=== PATIENT | male | born 1980 | race Caucasian/White ===

== ENCOUNTER 2022-07-10 17:33 | Inpatient (IN) | payer MEDICAID, OTHER ==
[~2022-07-10] VITALS: Ht 180.3 cm; Wt 79.5 kg
[2022-07-10 22:03] LABS: BASOPHILS % (AUTO) 0.3 % (0.0-2.0); EOSINOPHILS % (AUTO) 0.6 % (1.0-6.0); HEMATOCRIT 52.6 % (41-53); HEMOGLOBIN 17.9 g/dL (13.5-17.5); LYMPHOCYTES # (AUTO) 2.1 K/uL (1.0-4.8); LYMPHOCYTES % (AUTO) 25.2 % (22.0-44.0); MEAN CORPUSCULAR HEMOGLOBIN 30.2 pg (26.0-34.0); MEAN CORPUSCULAR HGB CONC 34.1 G/dL (31.0-37.0); MEAN CORPUSCULAR VOLUME 89 fL (80-100); MONOCYTES # (AUTO) 0.6 K/uL (0.1-1.0); MONOCYTES % (AUTO) 7.4 % (2.0-9.0); NEUTROPHILS # (AUTO) 5.5 K/uL (1.8-7.7); NEUTROPHILS % (AUTO) 66.5 % (40.0-70.0); PLATELET COUNT (AUTO) 191 K/uL (150-450); RED BLOOD CELL COUNT(AUTO) 5.93 MIL/uL (4.50-5.90); RED CELL DISTRIBUTION WIDTH 13.7 % (11.5-14.5)
[2022-07-10 22:12] LABS: ANION GAP 9 mmol/L (8-16); CALCIUM, TOTAL 9.3 mg/dL (8.8-10.5); CARBON DIOXIDE 31 mmol/L (22-29); CHLORIDE 97 mmol/L (98-107); CREATININE 1.03 mg/dL (0.60-1.30); GLOMERULAR FILTR. RATE CALC > 60 mL/min (>60); GLUCOSE,RANDOM 130 mg/dL (70-110); SODIUM SERUM 137 mmol/L (136-145); UREA NITROGEN, BLOOD 10 mg/dL (7-18)
[2022-07-10 22:18] LABS: ALANINE AMINOTRANSFERASE 27 U/L (12-78); ALKALINE PHOSPHATASE 74 U/L (46-116); ASPARTATE AMINOTRANSFERASE 14 U/L (15-37); BILIRUBIN,TOTAL 0.7 mg/dL (0.1-1.0)
[2022-07-10 23:32] LABS: AMPHET/METH SCREEN,URINE NEGATIVE (NEGATIVE); BARBITURATE SCREEN, URINE NEGATIVE (NEGATIVE); BENZODIAZEPINES SCREEN,URINE NEGATIVE (NEGATIVE); CANNABINOID SCREEN,URINE POSITIVE (NEGATIVE); COCAINE SCREEN,URINE NEGATIVE (NEGATIVE); METHADONE SCREEN, URINE NEGATIVE (NEGATIVE); OPIATE SCREEN,URINE NEGATIVE (NEGATIVE)
[2022-07-10 23:33] LABS: PHENCYCLIDINE SCREEN,URINE NEGATIVE (NEGATIVE)
[2022-07-11] MEDS ORDERED: HALOPERIDOL 5 MG TABLET PO ONE
[2022-07-11] MEDS ORDERED: LORazepam 1 MG TABLET PO ONE
[2022-07-11] MEDS ORDERED: QUEtiapine FUMARATE 100 MG TABLET PO PRN (08:15)
[2022-07-11 08:26] LABS: COVID AG,FIA SOURCE NASAL SWAB
[2022-07-11 12:36] VITALS: BP 112/87
[2022-07-11] MEDS ORDERED: PNEUMOCOCCAL VACCINE POLYVALENT 0.5 ML VIAL [PPSV23] IM. ONE (13:00)
[2022-07-11] MEDS ORDERED: LOPERAMIDE HCL 2 MG CAPSULE PO PRN (15:15)
[2022-07-11] MEDS ORDERED: HydrOXYzine PAMOATE 50 MG CAPSULE PO PRN (15:15)
[2022-07-11] MEDS ORDERED: LURASIDONE HCL 20 MG TABLET PO PRN (15:15)
[2022-07-11] MEDS ORDERED: MAG HYDROX/AL HYDROX/SIMETH ES 30 ML SUSPENSION UDCUP PO PRN (15:15)
[2022-07-11] MEDS ORDERED: GuaiFENesin/D-METHORPHAN [SUGAR-FREE] 200-20MG/10 ML SYRUP UDCUP PO PRN (15:15)
[2022-07-11] MEDS ORDERED: PROMETHAZINE HCL 25 MG TABLET PO PRN (15:15)
[2022-07-11] MEDS ORDERED: TUBERCULIN, PURIFIED PROTEIN DERIVATIVE 5 TU/0.1 ML SYRINGE ID ONE (15:15)
[2022-07-11] MEDS ORDERED: MAGNESIUM HYDROXIDE SUSPENSION 30 ML UDCUP PO PRN (15:15)
[2022-07-11] MEDS ORDERED: ACETAMINOPHEN 325 MG TABLET PO PRN ×2 (15:15→21:00)
[2022-07-11] MEDS: LURASIDONE HCL 40 MG TABLET PO SCH (17:00)
[2022-07-11] MEDS: THIAMINE 100 MG TABLET PO SCH (17:03)
[2022-07-11] MEDS: MELATONIN 5 MG TABLET PO SCH (20:30)
[2022-07-11 20:42] VITALS: BP 119/87
[2022-07-11] MEDS: ZOLPIDEM TARTRATE 10 MG TABLET PO PRN ×2 (23:17→23:21)
[2022-07-12 00:03] VITALS: BP 124/90
[2022-07-12] MEDS: LORazepam 2 MG TABLET PO PRN ×2 (00:07→22:54)
[2022-07-12 08:15] VITALS: BP 137/75
[2022-07-12] MEDS: FOLIC ACID 1 MG TABLET PO SCH (08:56)
[2022-07-12] MEDS: OMEGA-3/DHA/EPA/FISH OIL 1,000 MG CAPSULE PO SCH (08:56)
[2022-07-12] MEDS: THIAMINE 100 MG TABLET PO SCH ×2 (08:56→16:05)
[2022-07-12] MEDS: MULTIVITAMINS WITH MINERALS, THERAPEUTIC TABLET PO SCH (08:56)
[2022-07-12] MEDS: NALTREXONE HCL 50 MG TABLET PO SCH (08:57)
[2022-07-12 08:58] LABS: HEMOGLOBIN A1C 5.6 % (3.8-5.6)
[2022-07-12 09:28] LABS: CHOL/HDL RATIO 2.9 (4.2-7.3); FREE T4 (FREE THYROXINE) 1.05 ng/dL (0.76-1.46); THYROID STIMULATING HORMONE 1.43 uIU/mL (0.36-3.74)
[2022-07-12] MEDS: LURASIDONE HCL 40 MG TABLET PO SCH ×2 (16:05→16:10)
[2022-07-12] MEDS: MELATONIN 5 MG TABLET PO SCH (20:17)
[2022-07-12 20:30] VITALS: BP 137/84
[2022-07-13 08:19] VITALS: BP 134/82
[2022-07-13] MEDS: OMEGA-3/DHA/EPA/FISH OIL 1,000 MG CAPSULE PO SCH (08:25)
[2022-07-13] MEDS: NALTREXONE HCL 50 MG TABLET PO SCH (08:26)
[2022-07-13] MEDS: FOLIC ACID 1 MG TABLET PO SCH (08:26)
[2022-07-13] MEDS: MULTIVITAMINS WITH MINERALS, THERAPEUTIC TABLET PO SCH (08:26)
[2022-07-13] MEDS: THIAMINE 100 MG TABLET PO SCH ×2 (08:26→16:13)
[2022-07-13] MEDS: LURASIDONE HCL 40 MG TABLET PO SCH (17:00)
[2022-07-13 20:22] VITALS: BP 136/84
[2022-07-13] MEDS: MELATONIN 5 MG TABLET PO SCH (20:32)
[2022-07-13] MEDS: LORazepam 2 MG TABLET PO PRN (21:53)
[2022-07-13] MEDS ORDERED: TEMAZEPAM 15 MG CAPSULE PO PRN (22:00)
[2022-07-14] MEDS: NALTREXONE HCL 50 MG TABLET PO SCH (08:09)
[2022-07-14] MEDS: FOLIC ACID 1 MG TABLET PO SCH (08:09)
[2022-07-14] MEDS: OMEGA-3/DHA/EPA/FISH OIL 1,000 MG CAPSULE PO SCH (08:09)
[2022-07-14] MEDS: MULTIVITAMINS WITH MINERALS, THERAPEUTIC TABLET PO SCH (08:09)
[2022-07-14] MEDS: THIAMINE 100 MG TABLET PO SCH ×2 (08:09→16:19)
[2022-07-14 08:11] VITALS: BP 121/79
[2022-07-14] MEDS ORDERED: NALT50TA PO (13:48)
[2022-07-14] MEDS ORDERED: MELA5TAB40 PO (13:48)
[2022-07-14] MEDS ORDERED: OMEG-135 PO (13:48)
[2022-07-14] MEDS ORDERED: LURA40TA2 PO (13:48)
[2022-07-14] MEDS: LURASIDONE HCL 40 MG TABLET PO SCH (16:18)
== END 2022-07-14 17:00 | disposition home or self-care (01) | DRG 750 ==
LOC: EMS 17:33 → EDBD 17:33 → B2S 07-11 10:37
PROVIDERS: ADMIT Psychiatry & Neurology Psychiatry; ATTEND Psychiatry & Neurology Psychiatry
DX: F25.1 Schizoaffective disorder, depressive type (principal); F12.10 Cannabis abuse, uncomplicated; Z20.822 Contact with and (suspected) exposure to COVID-19; F17.210 Nicotine dependence, cigarettes, uncomplicated; F60.0 Paranoid personality disorder; G47.00 Insomnia, unspecified; I10 Essential (primary) hypertension; Z55.9 Problems related to education and literacy, unspecified; Z56.0 Unemployment, unspecified; Z59.9 Problem related to housing and economic circumstances, unspecified; Z63.9 Problem related to primary support group, unspecified; Z65.3 Problems related to other legal circumstances; Z88.5 Allergy status to narcotic agent
CPT/HCPCS: 80053; 80061; 83036; 84439; 84443; 85025; 86592; 99285; G0480; Q9967

== ENCOUNTER 2022-07-24 17:06 | Inpatient (IN) | payer MEDICAID, OTHER ==
[~2022-07-24] VITALS: Ht 180.3 cm; Wt 81.2 kg
[~2022-07-24 17:06] MED LIST: LURA40TA2 PO; MELA5TAB40 PO; NALT50TA PO; OMEG-135 PO
[2022-07-24 18:10] LABS: BASOPHILS % (AUTO) 0.4 % (0.0-2.0); HEMATOCRIT 50.3 % (41-53); HEMOGLOBIN 16.9 g/dL (13.5-17.5); LYMPHOCYTES # (AUTO) 2.2 K/uL (1.0-4.8); MEAN CORPUSCULAR HGB CONC 33.7 G/dL (31.0-37.0); MEAN CORPUSCULAR VOLUME 89 fL (80-100); MONOCYTES # (AUTO) 0.6 K/uL (0.1-1.0); MONOCYTES % (AUTO) 6.2 % (2.0-9.0); NEUTROPHILS # (AUTO) 6.2 K/uL (1.8-7.7); NEUTROPHILS % (AUTO) 68.4 % (40.0-70.0); PLATELET COUNT (AUTO) 221 K/uL (150-450); RED BLOOD CELL COUNT(AUTO) 5.64 MIL/uL (4.50-5.90); RED CELL DISTRIBUTION WIDTH 13.6 % (11.5-14.5)
[2022-07-24 18:20] LABS: COVID AG,FIA SOURCE NASAL SWAB
[2022-07-24 18:24] LABS: ANION GAP 3 mmol/L (8-16); CALCIUM, TOTAL 8.9 mg/dL (8.8-10.5); CARBON DIOXIDE 28 mmol/L (22-29); CHLORIDE 99 mmol/L (98-107); CREATININE 1.01 mg/dL (0.60-1.30); GLUCOSE,RANDOM 143 mg/dL (70-110); POTASSIUM 3.2 mmol/L (3.5-5.1); SODIUM SERUM 130 mmol/L (136-145); UREA NITROGEN, BLOOD 17 mg/dL (7-18)
[2022-07-24 18:28] LABS: GLOMERULAR FILTR. RATE CALC > 60 mL/min (>60)
[2022-07-24 18:30] LABS: ALANINE AMINOTRANSFERASE 27 U/L (12-78); ALBUMIN 3.6 g/dL (3.4-5.0); ALKALINE PHOSPHATASE 68 U/L (46-116); ASPARTATE AMINOTRANSFERASE 15 U/L (15-37); BILIRUBIN,TOTAL 0.6 mg/dL (0.1-1.0); TOTAL PROTEIN, SERUM 7.4 g/dL (6.4-8.2)
[2022-07-24] MEDS ORDERED: QUEtiapine FUMARATE 100 MG TABLET PO PRN (21:15)
[2022-07-24] MEDS: LORazepam 2 MG TABLET PO PRN (21:33)
[2022-07-25 03:08] VITALS: BP 100/70
[2022-07-25 03:11] VITALS: BP 100/70
[2022-07-25 07:09] LABS: HEMOGLOBIN A1C 5.5 % (3.8-5.6)
[2022-07-25 07:19] LABS: ALANINE AMINOTRANSFERASE 23 U/L (12-78); ALBUMIN 3.1 g/dL (3.4-5.0); ALKALINE PHOSPHATASE 68 U/L (46-116); ANION GAP 2 mmol/L (8-16); ASPARTATE AMINOTRANSFERASE 12 U/L (15-37); BILIRUBIN,TOTAL 0.3 mg/dL (0.1-1.0); CALCIUM, TOTAL 8.6 mg/dL (8.8-10.5); CARBON DIOXIDE 30 mmol/L (22-29); CHLORIDE 104 mmol/L (98-107); CHOLESTEROL 131 mg/dL (131-200); CREATININE 0.92 mg/dL (0.60-1.30); FREE T4 (FREE THYROXINE) 0.98 ng/dL (0.76-1.46); GLUCOSE,RANDOM 135 mg/dL (70-110); HDL CHOLESTEROL 44 mg/dL (40-60); LDL CHOL (CALC.) 66 mg/dL (0-130); POTASSIUM 3.4 mmol/L (3.5-5.1); SODIUM SERUM 136 mmol/L (136-145); THYROID STIMULATING HORMONE 1.39 uIU/mL (0.36-3.74); TOTAL PROTEIN, SERUM 6.4 g/dL (6.4-8.2); TRIGLYCERIDES 107 mg/dL (15-150); UREA NITROGEN, BLOOD 18 mg/dL (7-18)
[2022-07-25 07:21] LABS: GLOMERULAR FILTR. RATE CALC > 60 mL/min (>60)
[2022-07-25 09:16] VITALS: BP 114/71
[2022-07-25] MEDS: LORazepam 2 MG TABLET PO PRN (12:25)
[2022-07-25] MEDS ORDERED: LORazepam 1 MG TABLET PO PRN (19:00)
[2022-07-25] MEDS: ChlorproMAZINE HCL 100 MG TABLET PO SCH (20:01)
[2022-07-25] MEDS: TraZODone HCL 100 MG TABLET PO SCH (20:01)
[2022-07-25] MEDS: DiphenhydrAMINE HCL 25 MG CAPSULE PO SCH (20:01)
[2022-07-25] MEDS: OLANZapine 5 MG TABLET PO SCH (20:01)
[2022-07-25 20:10] VITALS: BP 108/61
[2022-07-26 07:09] LABS: BASOPHILS % (AUTO) 3.3 % (0.0-2.0); EOSINOPHILS % (AUTO) 2.2 % (1.0-6.0); HEMATOCRIT 45.1 % (41-53); HEMOGLOBIN 15.3 g/dL (13.5-17.5); LYMPHOCYTES # (AUTO) 1.5 K/uL (1.0-4.8); MEAN CORPUSCULAR HEMOGLOBIN 30.5 pg (26.0-34.0); MEAN CORPUSCULAR HGB CONC 33.9 G/dL (31.0-37.0); MEAN CORPUSCULAR VOLUME 90 fL (80-100); MONOCYTES # (AUTO) 0.4 K/uL (0.1-1.0); NEUTROPHILS # (AUTO) 4.1 K/uL (1.8-7.7); NEUTROPHILS % (AUTO) 64.5 % (40.0-70.0); PLATELET COUNT (AUTO) 173 K/uL (150-450); RED BLOOD CELL COUNT(AUTO) 5.01 MIL/uL (4.50-5.90); RED CELL DISTRIBUTION WIDTH 13.5 % (11.5-14.5)
[2022-07-26 07:22] LABS: HEMOGLOBIN A1C 5.6 % (3.8-5.6)
[2022-07-26 07:33] LABS: ALANINE AMINOTRANSFERASE 19 U/L (12-78); ANION GAP 5 mmol/L (8-16); CALCIUM, TOTAL 8.8 mg/dL (8.8-10.5); CARBON DIOXIDE 30 mmol/L (22-29); CHLORIDE 106 mmol/L (98-107); CHOL/HDL RATIO 3.4 (4.2-7.3); CHOLESTEROL 135 mg/dL (131-200); CREATININE 0.85 mg/dL (0.60-1.30); GLUCOSE,RANDOM 105 mg/dL (70-110); HDL CHOLESTEROL 40 mg/dL (40-60); LDL CHOL (CALC.) 71 mg/dL (0-130); POTASSIUM 3.3 mmol/L (3.5-5.1); SODIUM SERUM 141 mmol/L (136-145); TRIGLYCERIDES 119 mg/dL (15-150); UREA NITROGEN, BLOOD 16 mg/dL (7-18)
[2022-07-26 07:38] LABS: GLOMERULAR FILTR. RATE CALC > 60 mL/min (>60)
[2022-07-26 08:04] LABS: FREE T4 (FREE THYROXINE) 0.88 ng/dL (0.76-1.46); THYROID STIMULATING HORMONE 1.26 uIU/mL (0.36-3.74)
[2022-07-26 08:12] LABS: APPEARANCE,URINE HAZY (CLEAR); BILIRUBIN,URINE NEGATIVE (NEGATIVE); GLUCOSE, URINE (UA) NEGATIVE (NEGATIVE); KETONES,URINE NEGATIVE (NEGATIVE); LEUKOCYTE ESTERASE ,URINE NEGATIVE (NEGATIVE); NITRATE,URINE NEGATIVE (NEGATIVE); OCCULT BLOOD,URINE SMALL (NEGATIVE); PH,URINE 6.5 (5.0-8.0); PROTEIN,URINE TRACE mg/dL (NEGATIVE); SPECIFIC GRAVITIY, URINE 1.029 (1.003-1.030); UROBILINOGEN,URINE <=1.0 mg/dL (<=1.0)
[2022-07-26] MEDS: ChlorproMAZINE HCL 100 MG TABLET PO SCH ×4 (08:14→20:42)
[2022-07-26 08:21] LABS: AMPHET/METH SCREEN,URINE NEGATIVE (NEGATIVE); BARBITURATE SCREEN, URINE NEGATIVE (NEGATIVE); BENZODIAZEPINES SCREEN,URINE NEGATIVE (NEGATIVE); CANNABINOID SCREEN,URINE POSITIVE (NEGATIVE); COCAINE SCREEN,URINE NEGATIVE (NEGATIVE); METHADONE SCREEN, URINE NEGATIVE (NEGATIVE); OPIATE SCREEN,URINE NEGATIVE (NEGATIVE)
[2022-07-26 08:22] LABS: PHENCYCLIDINE SCREEN,URINE NEGATIVE (NEGATIVE)
[2022-07-26 08:23] VITALS: BP 115/65
[2022-07-26 08:27] LABS: AMORPHOUS SEDIMENT,UR Moderate /LPF (None Seen); BACTERIA,URINE None Seen /HPF (None Seen); HYALINE CASTS, URINE 0-2 /LPF (None Seen); SQUAMOUS EPITHELIAL CELL,UR Few /LPF (None Seen); WBC,URINE 0-2 /HPF (0-5)
[2022-07-26] MEDS ORDERED: POTASSIUM CHLORIDE 20 MEQ ER TABLET PO ONE (11:45)
[2022-07-26 20:14] VITALS: BP 105/68
[2022-07-26] MEDS: TraZODone HCL 100 MG TABLET PO SCH (20:42)
[2022-07-26] MEDS: OLANZapine 5 MG TABLET PO SCH (20:42)
[2022-07-26] MEDS: DiphenhydrAMINE HCL 25 MG CAPSULE PO SCH (20:42)
[2022-07-27 07:57] LABS: ANION GAP 0 mmol/L (8-16); CALCIUM, TOTAL 8.5 mg/dL (8.8-10.5); CARBON DIOXIDE 31 mmol/L (22-29); CHLORIDE 103 mmol/L (98-107); CREATININE 1.02 mg/dL (0.60-1.30); GLUCOSE,RANDOM 109 mg/dL (70-110); POTASSIUM 3.7 mmol/L (3.5-5.1); SODIUM SERUM 134 mmol/L (136-145); UREA NITROGEN, BLOOD 15 mg/dL (7-18)
[2022-07-27 07:58] LABS: GLOMERULAR FILTR. RATE CALC > 60 mL/min (>60)
[2022-07-27 08:31] VITALS: BP 140/86
[2022-07-27] MEDS: ChlorproMAZINE HCL 100 MG TABLET PO SCH ×4 (08:48→20:36)
[2022-07-27 20:13] VITALS: BP 120/64
[2022-07-27] MEDS: DiphenhydrAMINE HCL 25 MG CAPSULE PO SCH (20:36)
[2022-07-27] MEDS: TraZODone HCL 100 MG TABLET PO SCH (20:36)
[2022-07-27] MEDS: OLANZapine 5 MG TABLET PO SCH (20:36)
[2022-07-27] MEDS ORDERED: ChlorproMAZINE HCL 50 MG TABLET PO PRN (21:15)
[2022-07-28 08:16] VITALS: BP 120/76
[2022-07-28] MEDS: TraZODone HCL 100 MG TABLET PO SCH (20:05)
[2022-07-28] MEDS: OLANZapine 5 MG TABLET PO SCH (20:06)
[2022-07-28] MEDS: DiphenhydrAMINE HCL 25 MG CAPSULE PO SCH (20:06)
[2022-07-28 20:41] VITALS: BP 116/73
[2022-07-29 08:23] VITALS: BP 132/97
[2022-07-29 20:12] VITALS: BP 127/78
[2022-07-29] MEDS: OLANZapine 5 MG TABLET PO SCH (20:14)
[2022-07-29] MEDS: TraZODone HCL 100 MG TABLET PO SCH (20:14)
[2022-07-29] MEDS: DiphenhydrAMINE HCL 25 MG CAPSULE PO SCH (20:14)
[2022-07-30 08:58] VITALS: BP 126/83
[2022-07-30 20:11] VITALS: BP 125/85
[2022-07-30] MEDS: TEMAZEPAM 15 MG CAPSULE PO PRN (20:45)
[2022-07-30] MEDS: TraZODone HCL 150 MG TABLET PO SCH (20:45)
[2022-07-30] MEDS: OLANZapine 5 MG TABLET PO SCH (20:45)
[2022-07-30] MEDS: DiphenhydrAMINE HCL 25 MG CAPSULE PO SCH (20:45)
[2022-07-31 13:47] VITALS: BP 123/73
[2022-07-31 20:00] VITALS: BP 127/81
[2022-07-31] MEDS: DiphenhydrAMINE HCL 25 MG CAPSULE PO SCH (20:33)
[2022-07-31] MEDS: TraZODone HCL 150 MG TABLET PO SCH (20:33)
[2022-07-31] MEDS: OLANZapine 5 MG TABLET PO SCH (20:33)
[2022-07-31] MEDS: TEMAZEPAM 15 MG CAPSULE PO PRN (20:33)
[2022-08-01] MEDS ORDERED: OLANZapine 5 MG RAPDIS TABLET PO PRN (10:30)
[2022-08-01] MEDS ORDERED: TRAZ-283 PO (10:31)
[2022-08-01] MEDS ORDERED: OLAN5TAB52 PO (10:31)
[2022-08-01] MEDS ORDERED: MELA5TAB40 PO (10:31)
[2022-08-01] MEDS ORDERED: NALT50TA PO (10:31)
[2022-08-01 11:31] LABS: GLUCOMETER DEV NAME(LOC) POC.BV
[2022-08-01 13:52] VITALS: BP_SYST 100; BP_SYST 136; BP_DIAS 73; BP_DIAS 83
[2022-08-01] MEDS ORDERED: MELATONIN 5 MG TABLET PO SCH (21:00)
[2022-08-02] MEDS ORDERED: NALTREXONE HCL 50 MG TABLET PO SCH (09:00)
== END 2022-08-01 19:18 | disposition home or self-care (01) | DRG 750 ==
LOC: EMS 17:06 → B3A 07-25 01:16
PROVIDERS: ADMIT Psychiatry & Neurology Psychiatry; ATTEND Psychiatry & Neurology Psychiatry
DX: F25.1 Schizoaffective disorder, depressive type (principal); R45.850 Homicidal ideations; R45.851 Suicidal ideations; F41.9 Anxiety disorder, unspecified; G47.00 Insomnia, unspecified; E87.6 Hypokalemia; I10 Essential (primary) hypertension; R31.9 Hematuria, unspecified; Z20.822 Contact with and (suspected) exposure to COVID-19; Z55.9 Problems related to education and literacy, unspecified; Z59.9 Problem related to housing and economic circumstances, unspecified; Z63.9 Problem related to primary support group, unspecified; Z65.3 Problems related to other legal circumstances; Z87.891 Personal history of nicotine dependence; Z79.899 Other long term (current) drug therapy; Z88.8 Allergy status to other drugs, medicaments and biological substances
CPT/HCPCS: 70450; 80048; 80053; 80061; 80307; 81001; 82607; 83036; 84439; 84443; 84460; 85025; 86592; 87081; 99285; G0480

== ENCOUNTER 2023-03-15 10:34 | Inpatient (IN) | payer MEDICAID, OTHER ==
[~2023-03-15] VITALS: Ht 185.4 cm; Wt 80.1 kg
[~2023-03-15 10:34] MED LIST changes: -LURA40TA2 PO; +OLAN5TAB52 PO; +TRAZ-283 PO
[2023-03-15 12:19] LABS: BASOPHILS % (AUTO) 0.5 % (0.0-2.0); EOSINOPHILS % (AUTO) 0.1 % (1.0-6.0); HEMATOCRIT 52.8 % (41-53); HEMOGLOBIN 17.6 g/dL (13.5-17.5); LYMPHOCYTES # (AUTO) 1.3 K/uL (1.0-4.8); LYMPHOCYTES % (AUTO) 14.9 % (22.0-44.0); MEAN CORPUSCULAR HEMOGLOBIN 30.7 pg (26.0-34.0); MEAN CORPUSCULAR HGB CONC 33.3 G/dL (31.0-37.0); MEAN CORPUSCULAR VOLUME 92 fL (80-100); MONOCYTES # (AUTO) 0.5 K/uL (0.1-1.0); MONOCYTES % (AUTO) 5.8 % (2.0-9.0); NEUTROPHILS # (AUTO) 6.7 K/uL (1.8-7.7); NEUTROPHILS % (AUTO) 78.7 % (40.0-70.0); PLATELET COUNT (AUTO) 211 K/uL (150-450); RED BLOOD CELL COUNT(AUTO) 5.72 MIL/uL (4.50-5.90)
[2023-03-15 12:30] LABS: ANION GAP 7 mmol/L (8-16); CALCIUM, TOTAL 9.3 mg/dL (8.8-10.5); CARBON DIOXIDE 29 mmol/L (22-29); CHLORIDE 99 mmol/L (98-107); GLOMERULAR FILTR. RATE CALC > 60 mL/min (>60); GLUCOSE,RANDOM 96 mg/dL (70-110); POTASSIUM 4.1 mmol/L (3.5-5.1); SODIUM SERUM 135 mmol/L (136-145); UREA NITROGEN, BLOOD 14 mg/dL (7-18)
[2023-03-15 12:32] LABS: ALANINE AMINOTRANSFERASE 27 U/L (12-78); ALBUMIN 4.4 g/dL (3.4-5.0); ALKALINE PHOSPHATASE 67 U/L (46-116); ASPARTATE AMINOTRANSFERASE 20 U/L (15-37); BILIRUBIN,TOTAL 1.1 mg/dL (0.1-1.0); TOTAL PROTEIN, SERUM 8.6 g/dL (6.4-8.2)
[2023-03-15] MEDS ORDERED: LORazepam 2 MG TABLET PO ONE (14:00)
[2023-03-15] MEDS ORDERED: DiphenhydrAMINE HCL 50 MG CAPSULE PO ONE (14:00)
[2023-03-15] MEDS ORDERED: HALOPERIDOL 5 MG TABLET PO ONE (14:00)
[2023-03-15 14:07] LABS: COVID AG,FIA SOURCE NASOPHARYNGEAL
[2023-03-15 14:14] LABS: APPEARANCE,URINE CLEAR (CLEAR); BILIRUBIN,URINE NEGATIVE (NEGATIVE); GLUCOSE, URINE (UA) NEGATIVE (NEGATIVE); KETONES,URINE 40-60 mg/dL (NEGATIVE); LEUKOCYTE ESTERASE ,URINE NEGATIVE (NEGATIVE); NITRATE,URINE NEGATIVE (NEGATIVE); OCCULT BLOOD,URINE MODERATE (NEGATIVE); PH,URINE 5.5 (5.0-8.0); PROTEIN,URINE NEGATIVE (NEGATIVE); SPECIFIC GRAVITIY, URINE 1.011 (1.003-1.030); UROBILINOGEN,URINE <=1.0 mg/dL (<=1.0)
[2023-03-15] MEDS ORDERED: LORazepam 2 MG TABLET PO PRN (14:15)
[2023-03-15] MEDS ORDERED: HALOPERIDOL 5 MG TABLET PO PRN (14:15)
[2023-03-15] MEDS ORDERED: ZOLPIDEM TARTRATE 10 MG TABLET PO PRN (14:15)
[2023-03-15 14:20] LABS: AMPHET/METH SCREEN,URINE NEGATIVE (NEGATIVE); BARBITURATE SCREEN, URINE NEGATIVE (NEGATIVE); BENZODIAZEPINES SCREEN,URINE NEGATIVE (NEGATIVE); CANNABINOID SCREEN,URINE POSITIVE (NEGATIVE); COCAINE SCREEN,URINE NEGATIVE (NEGATIVE); METHADONE SCREEN, URINE NEGATIVE (NEGATIVE); OPIATE SCREEN,URINE NEGATIVE (NEGATIVE); PHENCYCLIDINE SCREEN,URINE NEGATIVE (NEGATIVE)
[2023-03-15 14:33] LABS: BACTERIA,URINE None Seen /HPF (None Seen); SQUAMOUS EPITHELIAL CELL,UR Rare /LPF (None Seen); WBC,URINE None Seen /HPF (0-5)
[2023-03-15 22:10] VITALS: BP 119/74
[2023-03-16] MEDS ORDERED: ONDANSETRON HCL 4 MG TABLET PO PRN (05:15)
[2023-03-16] MEDS ORDERED: CloNIDine HCL 0.1 MG TABLET PO PRN (05:15)
[2023-03-16] MEDS ORDERED: ACETAMINOPHEN 325 MG TABLET PO PRN (05:15)
[2023-03-16] MEDS ORDERED: MAG HYDROX/AL HYDROX/SIMETH ES 30 ML SUSPENSION UDCUP PO PRN (05:15)
[2023-03-16] MEDS ORDERED: LOPERAMIDE HCL 2 MG CAPSULE PO PRN (05:15)
[2023-03-16] MEDS ORDERED: IBUPROFEN 600 MG TABLET PO PRN (05:15)
[2023-03-16] MEDS ORDERED: PETROLATUM,WHITE 28 GM JELLY TP PRN (05:15)
[2023-03-16] MEDS ORDERED: OMEPRAZOLE 20 MG CAPSULE PO PRN (05:15)
[2023-03-16] MEDS ORDERED: ALBUTEROL SULFATE HFA 90 MCG/PUFF 8 GM INHALER IH PRN (05:15)
[2023-03-16] MEDS ORDERED: BACITRACIN 28 GM OINTMENT TP PRN (05:15)
[2023-03-16] MEDS ORDERED: DOCUSATE SODIUM 100 MG CAPSULE PO PRN (05:15)
[2023-03-16] MEDS ORDERED: MAGNESIUM HYDROXIDE SUSPENSION 30 ML UDCUP PO PRN (05:15)
[2023-03-16] MEDS: OMEGA-3/DHA/EPA/FISH OIL 1,000 MG CAPSULE PO SCH (09:58)
[2023-03-16 10:37] VITALS: BP 144/84
[2023-03-16 16:00] VITALS: BP 162/95
[2023-03-17 08:00] VITALS: BP 134/82
[2023-03-17] MEDS: OMEGA-3/DHA/EPA/FISH OIL 1,000 MG CAPSULE PO SCH (08:19)
[2023-03-17 16:24] VITALS: BP 140/79
[2023-03-17 20:30] VITALS: BP 128/72
[2023-03-18 08:57] VITALS: BP 139/82
[2023-03-18] MEDS: OMEGA-3/DHA/EPA/FISH OIL 1,000 MG CAPSULE PO SCH (10:13)
[2023-03-18] MEDS: RisperiDONE 2 MG TABLET PO SCH ×2 (10:13→17:40)
[2023-03-18] MEDS: HydrOXYzine PAMOATE 25 MG CAPSULE PO SCH ×3 (10:13→17:40)
[2023-03-18 16:00] VITALS: BP 136/80
[2023-03-19 08:30] VITALS: BP 130/74
[2023-03-19] MEDS: HydrOXYzine PAMOATE 25 MG CAPSULE PO SCH ×2 (09:31→13:15)
[2023-03-19] MEDS: OMEGA-3/DHA/EPA/FISH OIL 1,000 MG CAPSULE PO SCH (09:31)
[2023-03-19] MEDS: RisperiDONE 2 MG TABLET PO SCH (09:31)
[2023-03-19] MEDS ORDERED: RISP2TAB86 PO (14:13)
== END 2023-03-19 15:48 | disposition home or self-care (01) | DRG 750 ==
LOC: EMS 10:36 → 3EI 21:08
PROVIDERS: ADMIT Psychiatry & Neurology Psychiatry; ATTEND Psychiatry & Neurology Psychiatry
DX: F20.9 Schizophrenia, unspecified (principal); F41.9 Anxiety disorder, unspecified; M54.50 Low back pain, unspecified; G47.00 Insomnia, unspecified; G89.29 Other chronic pain; I10 Essential (primary) hypertension; K21.9 Gastro-esophageal reflux disease without esophagitis; K59.00 Constipation, unspecified; Z20.822 Contact with and (suspected) exposure to COVID-19; Z79.899 Other long term (current) drug therapy
CPT/HCPCS: 80053; 80307; 81001; 85025; 99285; G0480

== ENCOUNTER 2023-03-28 11:02 | Emergency (ER) | payer MEDICAID, OTHER ==
[~2023-03-28] VITALS: Ht 180.3 cm; Wt 81.8 kg
[~2023-03-28 11:02] MED LIST changes: -MELA5TAB40 PO; -NALT50TA PO; -OLAN5TAB52 PO; -OMEG-135 PO; +RISP2TAB86 PO; -TRAZ-283 PO
[2023-03-28 11:27] VITALS: BP 161/98
[2023-03-28 14:37] LABS: BASOPHILS % (AUTO) 0.4 % (0.0-2.0); EOSINOPHILS % (AUTO) 0.5 % (1.0-6.0); HEMATOCRIT 52.5 % (41-53); HEMOGLOBIN 17.6 g/dL (13.5-17.5); LYMPHOCYTES # (AUTO) 1.6 K/uL (1.0-4.8); LYMPHOCYTES % (AUTO) 17.6 % (22.0-44.0); MEAN CORPUSCULAR HEMOGLOBIN 30.9 pg (26.0-34.0); MEAN CORPUSCULAR HGB CONC 33.5 G/dL (31.0-37.0); MEAN CORPUSCULAR VOLUME 92 fL (80-100); MONOCYTES # (AUTO) 0.5 K/uL (0.1-1.0); MONOCYTES % (AUTO) 5.3 % (2.0-9.0); NEUTROPHILS # (AUTO) 6.9 K/uL (1.8-7.7); NEUTROPHILS % (AUTO) 76.2 % (40.0-70.0); PLATELET COUNT (AUTO) 247 K/uL (150-450); RED BLOOD CELL COUNT(AUTO) 5.68 MIL/uL (4.50-5.90); RED CELL DISTRIBUTION WIDTH 13.9 % (11.5-14.5)
[2023-03-28 14:50] LABS: ANION GAP 10 mmol/L (8-16); CALCIUM, TOTAL 9.3 mg/dL (8.8-10.5); CARBON DIOXIDE 28 mmol/L (22-29); CHLORIDE 100 mmol/L (98-107); CREATININE 0.98 mg/dL (0.60-1.30); GLOMERULAR FILTR. RATE CALC > 60 mL/min (>60); GLUCOSE,RANDOM 113 mg/dL (70-110); POTASSIUM 4.2 mmol/L (3.5-5.1); SODIUM SERUM 138 mmol/L (136-145)
[2023-03-28 15:10] LABS: ALANINE AMINOTRANSFERASE 85 U/L (12-78); ALBUMIN 4.2 g/dL (3.4-5.0); ALKALINE PHOSPHATASE 67 U/L (46-116); ASPARTATE AMINOTRANSFERASE 28 U/L (15-37); BILIRUBIN,TOTAL 0.4 mg/dL (0.1-1.0); CREATINE KINASE, TOTAL ONLY 76 U/L (39-308); PHOSPHORUS 3.6 mg/dL (2.5-4.9); TOTAL PROTEIN, SERUM 8.5 g/dL (6.4-8.2)
== END 2023-03-28 17:50 | disposition home or self-care (01) ==
LOC: EMS 11:51
DX: R55 Syncope and collapse (principal); I10 Essential (primary) hypertension; F20.9 Schizophrenia, unspecified; F12.90 Cannabis use, unspecified, uncomplicated; R42 Dizziness and giddiness; R53.1 Weakness; Z88.8 Allergy status to other drugs, medicaments and biological substances
CPT/HCPCS: 80053; 82550; 83735; 84100; 84484; 85025; 93005; 99284